=== PATIENT | male | born 1960 | race Caucasian/White ===

== ENCOUNTER 2020-07-13 14:07 | Outpatient (REF) | payer MEDICAID, SELFPAY ==
[2020-07-13 15:09] LABS: Anion Gap 19 (12-20); Blood Urea Nitrogen 25 mg/dL (9-16); Calcium 8.6 mg/dL (8.4-10.2); Carbon Dioxide 22 mmol/L (22-29); Chloride 102 mmol/L (96-108); Estimated Glomerular Filt Rate 44; Glucose Random 113 mg/dL (60-115); Potassium 5.5 mmol/L (3.3-5.1); Sodium 137 mmol/L (135-145)
== END 2020-07-13 14:08 | disposition home or self-care (01) ==
LOC: HO.LAB 14:07
PROVIDERS: PCP Internal Medicine; Visit Provider Surgery
DX: S81.802A Unspecified open wound, left lower leg, initial encounter (principal); X58.XXXA Exposure to other specified factors, initial encounter; Y93.9 Activity, unspecified; Y92.9 Unspecified place or not applicable; Y99.9 Unspecified external cause status
CPT/HCPCS: 36415; 80048

== ENCOUNTER 2020-07-14 15:21 | Outpatient (REF) | payer MEDICAID, SELFPAY ==
--- NOTE | ~2020-07-14 | CT_ITS ---
EXAMINATION: CT ANGIOGRAM CLINICAL INFORMATION: Ischemic wounds. COMPARISON: None. TECHNIQUE: 100 mL of Omnipaque 350 IV contrast administered. Sagittal, coronal and 3-D reconstructions were obtained. This CT examination was performed using dose optimization techniques as appropriate, variously including the following: *Automated exposure control *Adjustment of mA and/or kV according to patient size (this includes techniques or standardized protocols for targeted exams where dose is matched to indication/reason for exam; i.e. extremities or head) *Use of iterative reconstruction technique DLP: 883 mGy-cm. FINDINGS: VASCULAR: Evaluation of the arteries of the bilateral lower extremities is limited due to venous contamination. There is evidence of diffuse atherosclerotic disease with heavy vessel wall calcification. The abdominal aorta is normal in caliber. There are mild segmental stenoses of the mid and distal abdominal aorta. The celiac axis and SMA are patent. There is an early prehilar branching pattern of the left renal artery. There are 2 right renal arteries. No renal artery stenosis is seen. The celiac axis, SMA and ENDER are patent. The right common iliac artery is patent. There are mild segmental right common iliac artery stenoses. The right external iliac artery is patent. The right internal iliac artery demonstrates severe atherosclerotic disease. The right common femoral artery is heavily calcified and demonstrates mild stenoses. There is severe atherosclerotic disease of the profunda. There is severe atherosclerotic disease of the SFA. The mid and distal SFA appears occluded. There is reconstitution of the above knee popliteal artery. The above and below-knee popliteal arteries are diffusely diseased but patent. There is severe trifurcation disease. The posterior tibial artery appears to be the dominant vessel. The left common iliac artery is patent. There is moderate stenosis of the distal left common iliac artery and proximal left external iliac artery. The remainder of the left external iliac artery is patent. There is severe disease of the left internal iliac artery. The left common femoral artery is patent but heavily calcified. There is mild left common femoral artery stenosis. There is severe disease of the left SFA. The mid and distal left SFA are occluded. There is reconstitution of the distal left SFA and above-knee popliteal artery. There are stenoses of the proximal above-knee popliteal artery. The remainder of the popliteal artery is patent. There is severe trifurcation disease. The posterior tibial artery appears to be the dominant vessel. NON-VASCULAR: The lung bases are clear. There is a small left posterior medial diaphragmatic hernia containing fat. There are several areas of early arterial phase enhancement seen in the liver. Differential would include areas of a small intrahepatic vascular shunt, vascular perfusion effect versus possible flash filling hemangioma or other hypervascular liver lesion. The gallbladder is contracted. There is high attenuation in the gallbladder questionable for gallstones. The spleen, pancreas and adrenal glands are unremarkable. There is a 1.5 x 1.8 cm lesion in the lower pole of the right kidney. Hounsfield units following contrast measure 73. This is not compatible with simple cyst. Differential would include a solid liver lesion and hyperdense complex renal cyst. The bladder prostate gland are unremarkable. There is diverticulosis of the colon. Small and large bowel is otherwise unremarkable. No ascites or adenopathy is seen. There is a small umbilical hernia containing fat. There is diffuse edema of the lower legs. There is skin thickening and ulceration of the left crowder. There is high attenuation linear material that is probably related to surgical dressing. There are degenerative changes of the spine, hip joints and knee joints. CT/CT angio LE BI IMPRESSION: VASCULAR: Evaluation is limited in the lower legs due to venous contamination. Severe atherosclerotic disease with heavy vessel wall calcification. Mild segmental right common iliac stenoses. Moderate left distal common iliac/proximal external iliac stenosis. No other evidence of inflow disease. Right: Heavily calcified but patent right common femoral artery. 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 Reconstituted diseased popliteal artery. Severe trifurcation disease. Left: Heavily calcified but patent left common femoral artery. Severe SFA disease with occlusion of the left mid and distal SFA. Reconstituted popliteal artery. Severe trifurcation disease. NON-VASCULAR: 1.5 x 1.8 cm right renal lesion, question representing a solid renal mass versus complex cyst. Follow-up dedicated renal imaging with CT or MRI recommended. Areas of increased enhancement in the liver. Differential would include vascular shunt, transient perfusion effect and hypervascular liver lesions. Contracted gallbladder. Question gallstones. Severe diverticulosis. Findings will be communicated by the [facility] work flow pastry finisher Leonela Lux.
[2020-07-14] MEDS: iohexoL 350 MG/ML 100 ML INFUS..BTL IV (16:16)
== END 2020-07-14 15:22 | disposition home or self-care (01) ==
LOC: HO.CT 15:21
PROVIDERS: PCP Internal Medicine; Visit Provider Surgery
DX: L97.909 Non-pressure chronic ulcer of unspecified part of unspecified lower leg with unspecified severity (principal)
CPT/HCPCS: 73706; Q9967

== ENCOUNTER → 2021-08-14 15:40 | Outpatient (RCR) | payer MEDICAID, SELFPAY | END | disposition home or self-care (01) | LOC: HO.WCC 05-03 09:06 | PROVIDERS: PCP Internal Medicine; Visit Provider Surgery | DX: I70.232 Atherosclerosis of native arteries of right leg with ulceration of calf (principal); L97.212 Non-pressure chronic ulcer of right calf with fat layer exposed; L97.419 Non-pressure chronic ulcer of right heel and midfoot with unspecified severity; I70.234 Atherosclerosis of native arteries of right leg with ulceration of heel and midfoot; G62.9 Polyneuropathy, unspecified; I11.0 Hypertensive heart disease with heart failure; I50.9 Heart failure, unspecified; Z79.82 Long term (current) use of aspirin; Z87.891 Personal history of nicotine dependence; Z86.19 Personal history of other infectious and parasitic diseases | CPT/HCPCS: 11042; 11043; 11045; 11046; 87071; 87077; 87186; 87205; 97602; 99203; 99213; 99214; 99215 ==

== ENCOUNTER 2023-10-09 10:09 | Outpatient (REF) | payer MEDICAID, SELFPAY ==
[2023-10-09 12:14] LABS: Alanine Aminotransferase 6 U/L (0-40); Albumin Level 3.7 g/dL (3.5-5.0); Alkaline Phosphatase 74 U/L (39-117); Anion Gap 16 (12-20); Aspartate Amino Transferase 13 U/L (5-37); Bilirubin Total 0.4 mg/dL (0.0-1.0); Blood Urea Nitrogen 15 mg/dL (9-16); Calcium 9.1 mg/dL (8.4-10.2); Carbon Dioxide 25 mmol/L (22-29); Chloride 103 mmol/L (96-108); Estimated Glomerular Filt Rate > 60; Glucose Random 106 mg/dL (60-115); Potassium 4.6 mmol/L (3.3-5.1); Sodium 139 mmol/L (135-145); Total Protein 7.6 g/dL (6.5-8.0)
[2023-10-09 12:25] LABS: Prostate Specific Antigen Scr 0.29 ng/mL (<0.05-4.0)
== END 2023-10-09 10:10 | disposition home or self-care (01) ==
LOC: HO.HHCL 10:09
PROVIDERS: Visit Provider Internal Medicine
DX: Z00.00 Encounter for general adult medical examination without abnormal findings (principal); I10 Essential (primary) hypertension; Z12.5 Encounter for screening for malignant neoplasm of prostate
CPT/HCPCS: 36415; 80053; 84153